=== PATIENT | female | born 1970 | race Caucasian/White ===

== ENCOUNTER 2024-06-09 15:15 | Outpatient (RCR) | payer BC, SELFPAY ==
--- NOTE | 2024-04-24 16:45 | PTOPEVAL1 ---
Assessment and note entered by Rosario Barber, PT Evaluation Information Assessment Status Evaluation Diagnosis anaesthesia of skin paraesthesia of skin polyneuropathy, unspecified Therapy conditions abnormal posture weakness cervicalgia Subjective Information Reports will get tingling in the heel when stretching, sometimes has pain that goes up the backside of RLE, not tingling but a heavy going numb type of feeling. Will have numbness and tingling in BUEs, sometimes simultaneously and sometimes unilaterally. States arms will keep her from sleeping at times but the legs do not. RUE between pointer and second finger wiht a fist will pull in that area. 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 Hadn't boxed in the last month but then started slightly this morning. Pt reports chiropractic a couple months ago. 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 Has steroids, a boot, cortisone shot helped for 8 months but numbing pain still there. Palpation does not bother this area. This started about a year ago and 3 months ago started up again and lower leg pain started up with this. Reported Pain Level Pain Score 0: Self Report Assessment PT Clinical Summary Pt presents with complaints of multiple levels of deficits including BUE N/T at times, RLE N/T at times, right foot pain, nerve pain in right dorsum of hand. Pt has history of low back pain, and neck pain has seen a chiropractor for in the past but not recently. Pt also tried podiatry last year with only success wiht a steroid shot in the dorsum of the foot. Pt is a highly active individual who weight lifts and boxes. Evaluation today demo's fair core strength, poor glute strength, good LE flexibility, good lumbar ROM, with (+) special tests for R thoracic outlet with scalene involvement, (+) radial nerve tension on R , tight left cervical spine motion wiht active movement that is equal to R in passive movement suggestive of poor muscle patterning, and significantly abnormal alignment with l
--- NOTE | 2024-04-24 16:47 | OPREHPOC ---
Outpatient Therapy Plan of Care This is a Multidisciplinary Plan of Care that may contain components documented by all disciplines (PT, OT, and ST.) PT Problem 1 PT Problem #1 Knowledge Deficit PT Goal 1 Goal Pt will be independent in HEP Pt will verbalize understanding of diagnosis and prognosis Target Visit 6 PT Problem 2 PT Problem #2 Impaired Sensation PT Goal 1 Goal Pt will report ability to tolerate heel lifts and arches in shoes without discomfort Target Visit 6 PT Goal 2 Goal Pt will report resolution of LE tingling, and BUE tingling Target Visit 12 PT Problem 3 PT Problem #3 Impaired Strength PT Goal 1 Goal Pt will demo 4/5 gluteus honey and medius strength sae Target Visit 10
--- NOTE | 2024-06-11 16:29 | PTOPDC ---
Assessment and note entered by Rosario Barber, PT Evaluation Information Assessment Status Discharge Subjective Information Tingling in heel of right is gone, but when has the numbing on the random days will go up the back of the leg. Tape helps sometimes but doesn't take it away, depends on what shoes is wearing. 75% of the days still can't wear no-show sock but if takes it off not issues. tingling in the arms, has not had the full extreme tingling as did originally. Times when sometimes will have up to elbow and in hands for brief amount of time but didn't last long. Still has feelings at times when is sitting that sometimes is impinged somewhere and if get's up and stands is fine. pull/zing between R pointer nad middle finger is more localized. Has recently started wearing heel lift in shoe for leg length discrepancy Self-perceived improvement: 50% Assessment PT Clinical Summary Pt made multiple gains in therapy related to discomfort, strength, and ROM. However she cont to have symptoms in the RLE and at times in the radial nerve on the right hand that have not resolved. Pt has met max benefit for physical therapy and has been referred back to PCP for further options. Plan of Care PT Services Indicated No
== END 2024-06-12 08:15 | disposition home or self-care (01) ==
LOC: ANHHIPT 15:15
PROVIDERS: PCP Nurse Practitioner Family; Visit Provider Nurse Practitioner Family
DX: R20.0 Anesthesia of skin (principal); R20.2 Paresthesia of skin; G62.9 Polyneuropathy, unspecified
CPT/HCPCS: 97014; 97110; 97112; 97140; 97162; 97530; 97750; G0283